=== PATIENT | male | born 1985 | race Caucasian/White ===

== ENCOUNTER 2019-04-21 16:59 | Emergency (ER) | payer BC, SELFPAY ==
[2019-04-21 17:00] VITALS: BP 142/106; PULSE 89; RESP 16; TEMP 36.7; O2SAT 96; BMI 46.7
--- NOTE | 2019-04-21 17:37 | US_ITS ---
STUDY: SCROTUM ULTRASOUND REASON FOR EXAM: Male, 33 years old. Right testicular pain x1 week TECHNIQUE: Ultrasound evaluation of the scrotum was performed with color Doppler and static finley-scale imaging. COMPARISON: None. FINDINGS: RIGHT TESTICLE INTRATESTICULAR: There is a normal size of the right testicle. The right testicle measures 4.7 x 3.2 x 2.6 cm. There is a heterogeneous echotexture. There is increased arterial and increased venous vascularity. One microcalcification is noted. EXTRATESTICULAR: The epididymis is normal in size. The epididymis head measures 1.1 x 1.1 x 0.9 cm. There is normal vascularity of the epididymis. There is a 3 x 4 x 2 mm right epididymal head cyst. There is there is a moderate hydrocele with debris. There is no demonstrated varicocele. There is no demonstrated extratesticular mass or cyst. LEFT TESTICLE INTRATESTICULAR: There is a normal size of the left testicle. The left testicle measures 4.4 x 3.5 x 2.3 cm. There is a heterogeneous echotexture. There is mildly increased arterial and mildly increased venous vascularity. There is one microcalcification. EXTRATESTICULAR: The epididymis is normal in size. The epididymis head measures 1.1 x 0.9 x 0.7 cm. There is normal vascularity of the epididymis. There is no demonstrated epididymal cystic structure. There is there is a moderate hydrocele with debris. There is no demonstrated varicocele. There is no demonstrated extratesticular mass or cyst. US/Testicular with Arterial Flow IMPRESSION: Heterogeneously echogenic hyperemic testes suggestive of orchitis. Solitary bilateral microcalcifications are noted. Moderate bilateral hydroceles with debris. Small right epididymal head cyst. Electronically Signed: Andrea Salas MD at 18:49 EDT , Service support ,
--- NOTE | 2019-04-21 17:41 | ED.VIS.GEN ---
History of Present Illness Chief Complaint: Male Pain/Injury Informant: Patient Onset: Today Context: Sudden Onset Timing: Continuous Quality: achy Location: right testicle Current Severity: Moderate Maximum Severity: Severe Associated Symptoms: mild pain in right side/RLQ and low back Narrative: Patient states he has had some mild dull pain in his left testicle for the past week, after couple days it started bothering him in both of them, then it went away earlier today completely and he suddenly had acute onset of significant right testicular pain, not left while doing relatively nothing today. He did not have any nausea or vomiting with it. Some very mild discomfort in his right side. States it hurts to touch his scrotum. He has had this pain before but it went away on its own and did not see anybody for it. Denies any urinary symptoms. Denies any chance of STDs. Past Medical History - Allergies and Home Meds Allergies/Adverse Reactions: Allergies No Known Allergies Allergy (Verified 06/27/15 18:17) Primary Care Physician: Care Physician,No Primary [Primary Care Provider] - Surgical History: appendectomy Lives: Spouse/ Significant Other Smoking Status: Former smoker Review of Systems General: Denies: Chills, Fever, Malaise, Sweats Eyes: Denies: Visual changes - bilaterally, Diplopia ENT: Denies: Rhinorrhea, Sore throat Cardiovascular: Denies: Chest pain, Palpitations Respiratory: Denies: Dyspnea, Cough, Dyspnea on exertion Gastrointestinal: Reports: Abdominal pain. Denies: Nausea, Vomiting, Diarrhea, Melena, Hematochezia Genitourinary: Reports: - - Right testicular pain. Denies: Dysuria, Hematuria, Frequency Musculoskeletal: Reports: Back pain. Denies: Neck pain, Swelling, Extremity Pain Skin: Denies: Rash, Wounds Neurological: Denies: Headache, Weakness, Numbness Physical Exam Vital Signs/Narrative: Vital Signs Temp Pulse Resp BP Pulse Ox 04/21/19 17:00 98.1 F 89 16 142/106 H 96 Inital Vital Signs reviewed: Yes General: Well nourished, Well developed, Obese, No Acute Distress - Well-appearing Head: Normocephalic, Atraumatic Eyes: Perrl, EOMI ENT: Moist mucous membranes, No rhinorrhea Neck: Supple, Nontender Cardiovascular: Regular rate, Regular rhythm, No murmurs Respiratory: No distress, CTA bilaterally, Chest nontender Abdomen: Soft, Nontender, Nondistended, Normal bowel sounds : - - Significant posterior right testicular tenderness. Likely tender at epididymis. Anterior testicle nontender. Cremasterics intact. No blue dot sign. No outward scrotal skin abnormalities on inspection. No palpable hernia. Left side nontender throughout. Penis normal. Back: Nontender, Normal Inspection. Negative for: CVA tenderness Extremities: Nontender, No edema Skin: Normal color, No rash, No Trauma Neurological: Alert, Oriented x3, Cranial nerves II-XII grossly intact, Normal Strength, Normal Sensation Psychological: Normal affect, Normal Mood Diagnostic/Tx/Re-eval Impressions Testicular Ultrasound 04/21/19 17:37 IMPRESSION: Heterogeneously echogenic hyperemic testes suggestive of orchitis. Solitary bilateral microcalcifications are noted. Moderate bilateral hydroceles with debris. Small right epididymal head cyst. Electronically Signed: Andrea Salas MD at 18:49 EDT , Service support , 04/21/19 17:37 US Testicular [Testicular with Arterial Flow] [US] Stat Laboratory Results 04/21/19 19:45 Urine Color Yellow Urine Clarity Clear Urine pH 5.0 Ur Specific [place] 1.025 Urine Protein 15 H Urine Glucose (UA) Normal Urine Ketones 5 H Urine Occult Blood Negative Urine Nitrite Negative Urine Bilirubin Negative Urine Urobilinogen Normal Ur Leukocyte Esterase 25 H Urine RBC 0-5 SEEN Urine WBC 5-10 SEEN Ur Squamous Epith Cells 0-5 SEEN Urine Bacteria 1+ Urine Mucus 4+ - Medical Decision Making Ultrasound obtained, shows good blood flow to both testicles and signs of hyperemia consistent with orchitis bilaterally. Will treat with doxycycline, if he does not improve within a week I advised outpatient follow-up with urology. He is monogamous with his and is not at risk for GC or chlamydia so I suspect doxy alone is fine. Patient feels much better after Toradol, also given a prescription for Naprosyn prn. ED Disposition - Plan for ED Patient: Disposition: Home or Assisted Living Diagnosis: Bilateral orchitis Instructions: Orchitis Prescriptions: Doxycycline Hyclate 1 cap PO BID #20 cap Prescription Printed Naproxen [Naprosyn] 500 mg PO BID PRN #20 tab Prescription Printed Referrals: Josiah Eller MD [STAFF PHYSICIAN] - 1 Week if not improving
[2019-04-21] MEDS: Ketorolac 60 MG/2 ML Vial IM (17:48)
[2019-04-21 19:45] VITALS: BP 145/84; PULSE 64; RESP 16; O2SAT 97
[2019-04-21 19:54] LABS: Color, Urine Yellow (Yellow); Glucose, Dipstick Normal (Normal); Ketone-Dipstick 5 mg/dl (Negative); Leukocyte Esterase-Dipstick 25 /ul (Negative); Nitrite-Dipstick Negative (Negative); Occult Blood-Urine Negative /ul (Negative); Protein-Dipstick 15 mg/dl (Negative); Specific Gravity, Urine 1.025 (1.002-1.030); Urine Bilirubin Dipstick Negative (Negative); Urine Clarity Clear (Clear); Urine Urobilinogen Normal (Normal)
[2019-04-21 20:01] LABS: Bacteria 1+ /hpf (None Seen); Mucous, Urine 4+ /hpf (<or=2+); Red Blood Cells-Urine 0-5 SEEN /hpf (0-5); Squamous Epithelial Cells - UA 0-5 SEEN /hpf (0-5); White Blood Cells 5-10 SEEN /hpf (0-5)
[2019-04-21] MEDS: Doxycycline 100 MG CAPSULE PO (20:24)
== END 2019-04-21 20:30 | disposition home or self-care (01) ==
PROVIDERS: Emergency Provider Emergency Medicine
DX: N45.2 Orchitis (principal); N43.3 Hydrocele, unspecified; N50.3 Cyst of epididymis; E66.9 Obesity, unspecified; Z87.891 Personal history of nicotine dependence
CPT/HCPCS: 76870; 81001; 93976; 96372; 99283

== ENCOUNTER 2023-06-13 15:06 | Emergency (ER) | payer OTHER, SELFPAY ==
[2023-06-13 15:07] VITALS: BP 189/116; PULSE 116; RESP 18; TEMP 36.1; O2SAT 98
[2023-06-13 15:10] VITALS: BMI 52.6
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
[2023-06-13] MEDS: Diphth,Pertuss(Acell),Tet Vac 0.5 ML Vial IM (15:26)
[2023-06-13] MEDS: Ondansetron ODT 4 MG Tablet PO (15:27)
[2023-06-13] MEDS: Lidocaine/Epi/Tetracaine 50 ML 1 APPLIC TOPICAL (15:53)
[2023-06-13] MEDS: Lidocaine 1% /Epi 1:100 (20ml) 20 ML Vial INFILT (15:53)
[2023-06-13] MEDS: Acetaminophen 500 MG Tablet 1000 MG PO (15:53)
[2023-06-13 16:47] VITALS: BP 156/70; PULSE 68; RESP 12; O2SAT 98
== END 2023-06-13 16:47 | disposition home or self-care (01) ==
PROVIDERS: Emergency Provider Emergency Medicine; Visit Provider Emergency Medicine
DX: S01.01XA Laceration without foreign body of scalp, initial encounter (principal); Z87.891 Personal history of nicotine dependence; S06.0X0A Concussion without loss of consciousness, initial encounter; I10 Essential (primary) hypertension; E78.5 Hyperlipidemia, unspecified; W22.8XXA Striking against or struck by other objects, initial encounter; Y93.89 Activity, other specified; Z23 Encounter for immunization
CPT/HCPCS: 12002; 70450; 70486; 72125; 90471; 90715; 99285